=== PATIENT | male | born 1965 | race Caucasian/White ===

== ENCOUNTER 2025-07-02 15:54 | Emergency (ER) | payer MEDICAID ==
[~2025-07-02] VITALS: Ht 165.1 cm; Wt 77.6 kg
[2025-07-02] MEDS: IV NS 0.9% 1,000 ML BAG IV ONE (16:40)
[2025-07-02 16:48] LABS: PLATELET COUNT (AUTO) 251 K/uL (150-450); RED BLOOD CELL COUNT(AUTO) 4.51 MIL/uL (4.5-6.0); RED CELL DISTRIBUTION WIDTH 14.6 % (11.5-15.0); WHITE BLOOD COUNT (AUTO) 5.6 K/uL (4.3-11.0)
[2025-07-02 16:54] LABS: CALCIUM, SERUM 8.6 mg/dL (8.5-10.1); CREATININE 1.1 mg/dL (0.6-1.3); SODIUM SERUM 144.0 mmol/L (136-145); UREA NITROGEN, BLOOD 18.0 mg/dL (7-18)
[2025-07-02 18:19] VITALS: BP 138/84; TEMP 98.7; O2SAT 98
== END 2025-07-02 18:37 | disposition home or self-care (01) ==
LOC: ER 15:54
DX: R20.2 Paresthesia of skin (principal); Z59.00 Homelessness unspecified
CPT/HCPCS: 99283; 96360; 85025; 80048; 36415; J7030